=== PATIENT | female | born 1980 | race Caucasian/White ===

== ENCOUNTER 2021-03-20 14:22 | Inpatient (IN) ==
[2021-03-20] MEDS ORDERED: ALBUTEROL SULFATE 200 PUFF INHALER INH PRN (14:45)
--- NOTE | 2021-03-20 14:45 | Emergency Department Note ---
HPI General Chief complaint: Shortness of Breath/Dyspnea Stated complaint: Shortness of Breath; COVID Positive Time Seen by Provider: 03/20/21 14:26 Source: patient Mode of arrival: wheelchair Limitations: no limitations History of Present Illness HPI Narrative: Cat is a 40-year-old female who comes to the emergency department with complaints of worsening dyspnea after recently being hospitalized for COVID-19. She was diagnosed with a SARS-CoV-2 infection 7 days ago and was recently discharged from the ER on the on 2 L of oxygen by nasal cannula at home. She is unaware if she was put on prednisone. She is not reporting any increased use of oxygen requirement but also states that she does not know how to adjust her O2 at home. She has a persistent cough in the room that appears to be nonproductive but she is reported to me that she has sputum changes. She also reports that she was a heavy smoker by way of vaping prior to her diagnosis and has continued to vape several times after she came home from the hospital. The patient is a diabetic but does not have any history of acute coronary syndrome or pulmonary embolism. She states that she does have asthma but has no access to an inhaler. She is not complaining of any chest pain but is complaining of dyspnea on exertion. She has no other complaints today in the ER and no other modifying factors factors. Related Data Home Medications Medication Instructions Recorded Confirmed Formula Tablet 06/17/19 hydrocodone-acetaminophen 1 tab PO Q8HP PRN 06/17/19 06/17/19 insulin glargine 70 unit SQ 06/17/19 meloxicam 15 mg PO 06/17/19 06/17/19 metformin 1,000 mg PO BID 06/17/19 06/17/19 omeprazole 20 mg DAILY 06/17/19 06/17/19 pregabalin 300 mg PO TID 06/17/19 06/17/19 glipizide mg PO 02/27/21 liraglutide [Victoza 2-Jamal] mg SUBCUT 02/27/21 Allergies Allergy/AdvReac Type Severity Reaction Status Date / Time No Known Drug Allergies Allergy Verified 02/27/21 23:07 Review of Systems ROS ROS Narrative: Narrative: All systems ED: reviewed and negative except as stated. [facility] Narrative Patient History Narrative: Narrative: Medical/Surgical/Family History All Active Problems (Updated 03/20/21 @ 16:33 by Priyank Hunt PA-C) Acute bronchitis due to 2019 novel coronavirus (Acute) Hypoxia (Acute) Hyperglycemia (Acute) COVID-19 (Acute) Candidiasis of skin (Acute) Superficial wound (Acute) Viral upper respiratory illness (Acute) Chest pain (Acute) Medical History (Updated 03/20/21 @ 16:33 by Priyank Hunt PA-C) COVID-19 Social History Smoking Status: Current every day smoker Exam Narrative Narrative: Narrative: General Limitations: no limitations General appearance: Present alert and nontoxic Head Head: Present atraumatic, normocephalic and normal inspection Eye Eye: Present normal appearance, PERRL and EOMI ENT ENT: Present normal exam, normal oropharynx, mucous membranes moist and TM's normal bilaterally Neck Neck: Present normal inspection, full ROM and trachea midline Chest Chest: Present normal inspection and symmetric chest wall rise Respiratory Respiratory: Present wheezes Cardiovascular Cardiovascular: Present regular rate and normal rhythm Adbominal Abdominal: Present soft Extremities Extremities: Present normal inspection, full ROM and normal capillary refill Back Back: Present normal inspection and full ROM Neurological Neurological: Present alert and oriented X3 Psychiatric Psychiatric: Present normal affect and normal mood Skin Skin: Present warm (WNL), dry and normal color Course Course Course Narrative: 1443: Patient will receive an albuterol breathing treatment by way of inhaler as she has recently been diagnosed with COVID-19. Chest x-ray has been ordered for further evaluation of possible secondary infection. Lungs are without crackles or rails the patient does have mild expiratory wheezing which could be due to her history of smoking. Patient is also diabetic and is morbidly obese with a BMI of almost 80 which I suspect is causing complications and a slower recovery from her SARS-CoV-2 infection. Patient in the room has an oxygen saturation of 92% while not speaking but then desaturates into the 80s while talking and coughing. 1521: Patient's chest x-ray was interpreted by myself and there does appear to be multifocal infiltrates bilaterally which is a significant changed from her chest x-ray 3 days ago. Patient appears to be suffering hypoxia due to Covid pneumonia so we will discuss inpatient stay with the hospitalist. Patient will receive 6 mg of IV dexamethasone for inflammation. Currently her oxygen requirement has been titrated to 3 L by nasal cannula in order to maintain a saturation in the low 90s. 1554: The patient's metabolic profile has been reviewed and the patient has significant increase in her blood sugar at 460 as well as an anion gap of 20. She also appears to be suffering from hyponatremia with a sodium of 128. The patient has reported to me on reevaluation that she has not had any which is concerning for possible early DKA complicated by her already existing Covid pneumonia. Currently the nursing staff is still trying to establish IV placement. Patient's potassium levels are within normal range so we will discuss with Dr. Ivey about a bolus of 10 units of insulin to help with hyperglycemia and possible fluid however given that the patient has a sodium of 128, IV fluid may not be necessary at this time. Arterial blood gas and beta hydroxybutyrate have been ordered for further evaluation of the patient's diabetic status. 1612: I spoke with Dr. Stubbs regarding this patient and he is going to see her on the floor. 10 units insulin has been ordered for hyperglycemia. The patient's corrected sodium level is calculated at 136 given that she has a glucose of 438 so 1 L of normal saline has been ordered for hyperglycemia. Vital Signs Vital signs: Vital Signs Temperature 98.1 F 03/20/21 14:23 Pulse Rate 81 03/20/21 14:23 Respiratory Rate 22 03/20/21 14:23 Pulse Oximetry (%) 92 03/20/21 14:23 Temperature 98.1 F 03/20/21 14:23 Pulse Rate 94 H 03/20/21 15:31 Respiratory Rate 22 03/20/21 14:51 Blood Pressure 123/86 03/20/21 15:31 Pulse Oximetry (%) 90 03/20/21 15:31 [facility] Narrative Medical decision making narrative: 40-year-old female returns to the emergency department after being diagnosed with SARS-CoV-2 infection due to hypoxia and dyspnea on exertion. Patient's repeat chest x-ray shows evidence of Covid pneumonia and she is requiring higher oxygen requirement of 3 L by nasal cannula change from 2 L at home. Patient also reports history of noncompliance with diabetic medications as she has not had her insulin in over a week. Patient does have hyperglycemia with a blood sugar of 438. She was given an albuterol inhaler treatment for her shortness of breath as well as dexamethasone for inflammation due to her Covid pneumonia. Patient also received 10 units of regular insulin and IV fluid for hyperglycemia. Patient was discussed with attending emergency room physician as well as hospitalist and a decision was in due to hypoxia from Covid pneumonia as well as uncontrolled diabetes. Assessment: Covid pneumonia. Hyperglycemia. Treatment: Patient given albuterol for shortness of breath, dexamethasone for inflammation, insulin and IV fluid for elevated blood sugar. Lab Data Result diagrams: 03/20/21 14:51 03/20/21 14:51 Labs: Lab Results 03/20/21 03/20/21 03/20/21 Range/Units 14:51 14:51 14:51 WBC 6.3 (4.5-11.0) K/mcL RBC 4.26 (4.00-5.20) M/mcL Hgb 12.8 (12.0-15.0) g/dL Hct 38.8 (36.0-48.0) % MCV 91.1 (80.0-100.0) fL MCH 30.0 (26.0-34.0) pg MCHC 33.0 (31.0-36.0) g/dL RDW 15.6 H (11.5-14.5) % Plt Count 222 (140-440) K/mcL MPV 10.2 (7.4-10.4) fL Neut % (Auto) 69.2 (38.0-78.0) % Lymph % (Auto) 24.0 (15.0-49.0) % [place] % (Auto) 6.6 (1.0-12.0) % Eos % (Auto) 0 (0.0-7.0) % Baso % (Auto) 0.2 (0.0-2.0) % Lymph # (Auto) 1.50 (1.50-4.80) K/mcL [place] # (Auto) 0.41 (0.10-0.90) K/mcL Eos # (Auto) 0 (0.00-0.70) K/mcL Baso # (Auto) 0.01 (0.00-0.20) K/mcL Absolute Neutrophils 4.33 (1.80-8.00) K/mcL Sodium 128 L (133-145) mmol/L Potassium 3.6 (3.3-5.1) mmol/L Chloride 89 L (96-108) mmol/L Carbon Dioxide 19 L (22-30) mmol/L Anion Gap 20.0 H (8.0-16.0) BUN 7 (6-20) mg/dL Creatinine 1.0 (0.6-1.1) mg/dL GFR Calculation 70 Glucose 438 H (70-105) mg/dL Calcium 8.4 L (8.6-10.4) mg/dL Total Bilirubin 0.4 (0.1-1.0) mg/dL AST 56 H (<32) U/L ALT 30 (<40) U/L Alkaline Phosphatase 54 (39-117) U/L Total Protein 7.2 (5.9-8.4) gm/dL Albumin 3.5 (3.2-5.2) gm/dL Globulin 3.7 (2.2-3.7) gm/dL Albumin/Globulin Ratio 0.9 L (1.0-2.3) Beta-Hydroxybutyrate 0.78 H (<0.27) mmol/L Discharge Plan Patient/Caregiver Discharge Instructions Pt seen by [employer]/PA only: Yes (Patient discussed with Dr. Ivey.) Clinical Impression: Hypoxia, COVID-19, Hyperglycemia Activity: increase activity as tolerated Patient Disposition: Xfer As Inpt ([facility]) Condition: Good Follow up with: Elisabeth Moore PAJeanneC [Primary Care Provider] - Prescriptions: No Action hydrocodone-acetaminophen 1 TAB tablet 1 tab PO Q8HP PRN (Reason: Pain) RF: 0 meloxicam 15 MG tablet 15 mg PO RF: 0 omeprazole 20 MG capsule 20 mg DAILY RF: 0 pregabalin 300 MG capsule 300 mg PO TID RF: 0 Formula Tablet RF: 0 insulin glargine 1 UNIT/0.01 ML unit 70 unit SQ RF: 0 metformin 500 MG tablet extended release 24 hr 1,000 mg PO BID RF: 0 glipizide 10 mg tablet PO RF: 0 Victoza 2-Jamal 0.6 mg/0.1 mL (18 mg/3 mL) pen injector SUBCUT RF: 0
[2021-03-20 15:16] LABS: Basophils # (Auto) 0.01 K/mcL (0.00-0.20); Basophils % (Auto) 0.2 % (0.0-2.0); Eosinophils # (Auto) 0 K/mcL (0.00-0.70); Eosinophils % (Auto) 0 % (0.0-7.0); Hematocrit 38.8 % (36.0-48.0); Hemoglobin 12.8 g/dL (12.0-15.0); Mean Cell Volume 91.1 fL (80.0-100.0); Mean Platelet Volume 10.2 fL (7.4-10.4); Monocytes # (Auto) 0.41 K/mcL (0.10-0.90); Monocytes % (Auto) 6.6 % (1.0-12.0); Neutrophils % (Auto) 69.2 % (38.0-78.0); Platelet Count 222 K/mcL (140-440); RBC 4.26 M/mcL (4.00-5.20); Red Cell Distribution Width 15.6 % (11.5-14.5); WBC 6.3 K/mcL (4.5-11.0)
[2021-03-20] MEDS ORDERED: DEXAMETHASONE 10 MG/ML VIAL IV ONE (15:21)
[2021-03-20 15:42] LABS: ALT/SGPT 30 U/L (<40); AST/SGOT 56 U/L (<32); Albumin 3.5 gm/dL (3.2-5.2); Albumin/Globulin Ratio 0.9 (1.0-2.3); Alkaline Phosphatase 54 U/L (39-117); Bilirubin,Total 0.4 mg/dL (0.1-1.0); Blood Urea Nitrogen 7 mg/dL (6-20); Calcium 8.4 mg/dL (8.6-10.4); Carbon Dioxide 19 mmol/L (22-30); Chloride 89 mmol/L (96-108); Globulin 3.7 gm/dL (2.2-3.7); Glomerular Filtration Rate 70; Glucose 438 mg/dL (70-105)
--- NOTE | 2021-03-20 15:45 | XRay Report ---
CLINICAL INFORMATION: Report of worsening dypsnea, COVID + COMPARISON: 03/17/2021 FINDINGS: Heart size, mediastinum and pulmonary vessels are normal. Moderate patchy infiltrates in both mid and lower lungs have progressed considerably since previous exam. No effusions. IMPRESSION: Moderate patchy infiltrates throughout both mid and lower lungs have worsened considerably since previous exam. Findings compatible with Covid pneumonia Interpreted and Authenticated by: Charly Min 03/20/21
[2021-03-20] MEDS ORDERED: INSULIN REGULAR, HUMAN 1 UNIT/0.01 ML UNIT IV ONE (16:11)
[2021-03-20] MEDS ORDERED: 0.9 % SODIUM CHLORIDE 1,000 ML IV ONE (16:14)
[2021-03-20 16:18] LABS: Beta Hydroxybutyrate 0.78 mmol/L (<0.27)
--- NOTE | 2021-03-20 16:29 | Internal Med History&Physical ---
HPI History of Present Illness Patient information: Note initiated : 03/20/21 at 4:22 pm Service Date, if different from initiated Date: [] Patient: Cat Bauer 40 y/o F admitted on for Shortness of Breath; COVID Positive. Chief Complaint: [] History of present illness: Ms. Bauer is a 40 year old F The ED with worsening cough shortness of breath and weakness. Patient presented to the ED on the initially for shortness of breath and weakness body aches and was diagnosed with Covid pneumonia. Patient's oxygenation was okay and patient was discharged from the ED. However patient states that her coughing is worse with productive of white sputum her shortness of breath is worse and she is much more weak. She is requiring higher oxygen supplementation. Patient's blood glucose was 430. She says she has not taken her insulin since she came to the ED last because she has been feeling ill and not eating as much. She has not been checking her blood glucose either. She also vapes throughout the day every day. Review of Systems: Pertinent positives plus headache and nausea but no vomiting. Denies vomiting/chest or abdominal pain/diarrhea. Remaining 10 point review of system reviewed negative PFSH PFSH All Active Problems (Updated 03/20/21 @ 16:33 by Priyank Hunt PA-C) Acute bronchitis due to 2019 novel coronavirus (Acute) Hypoxia (Acute) Hyperglycemia (Acute) COVID-19 (Acute) Candidiasis of skin (Acute) Superficial wound (Acute) Viral upper respiratory illness (Acute) Chest pain (Acute) Medical History (Updated 03/20/21 @ 16:33 by Priyank Hunt PA-C) COVID-19 MEDS/ALLERGIES Home Medications and Allergies Home Medications Medication Instructions Recorded Confirmed Type Formula Tablet 06/17/19 History hydrocodone-acetaminophen 1 tab PO Q8HP PRN 06/17/19 06/17/19 History insulin glargine 70 unit SQ 06/17/19 History meloxicam 15 mg PO 06/17/19 06/17/19 History metformin 1,000 mg PO BID 06/17/19 06/17/19 History omeprazole 20 mg DAILY 06/17/19 06/17/19 History pregabalin 300 mg PO TID 06/17/19 06/17/19 History glipizide mg PO 02/27/21 History liraglutide [Victoza 2-Jamal] mg SUBCUT 02/27/21 History Allergies Allergy/AdvReac Type Severity Reaction Status Date / Time No Known Drug Allergies Allergy Verified 02/27/21 23:07 EXAM Constitutional Vitals: Temp Pulse Resp BP Pulse Ox 98.1 F 94 H 22 123/86 90 03/20/21 14:23 03/20/21 15:31 03/20/21 14:51 03/20/21 15:31 03/20/21 15:31 Exam: General: Alert, Awake, No acute Distress, obese Eyes/N/T: EOMI, PERRL, dry MM Head/Neck: neck supple, normocephalic atraumatic CV: RRR, No murmurs, normal s1/s2 Pulm: Rhonchi/wheezing b/l Abd: soft, nontender, +BS x4 Ext: no clubbing/cyanosis, b/l LE lymphedema Neuro: Alert, no focal deficits, moves all extremities, CN 2-12 grossly intact, symmetrical strength b/l upper/lower, sensations intact b/l upper/lower Skin: warm/dry DATA Data Completed and Pending Labs: Labs from last 24 hours 03/20/21 03/20/21 03/20/21 14:51 14:51 14:51 WBC RBC Hgb Hct MCV MCH MCHC RDW Plt Count MPV Neut % (Auto) Lymph % (Auto) [place] % (Auto) Eos % (Auto) Baso % (Auto) Lymph # (Auto) [place] # (Auto) Eos # (Auto) Baso # (Auto) Absolute Neutrophils PT INR D-Dimer Sodium Potassium Chloride Carbon Dioxide Anion Gap BUN Creatinine GFR Calculation Glucose Insulin Level Pending Calcium Ferritin Pending Total Bilirubin AST ALT Alkaline Phosphatase Total Creatine Kinase Pending C-Reactive Protein Pending Total Protein Albumin Globulin Albumin/Globulin Ratio Beta-Hydroxybutyrate Procalcitonin Pending 03/20/21 03/20/21 03/20/21 14:51 14:51 14:51 WBC RBC Hgb Hct MCV MCH MCHC RDW Plt Count MPV Neut % (Auto) Lymph % (Auto) [place] % (Auto) Eos % (Auto) Baso % (Auto) Lymph # (Auto) [place] # (Auto) Eos # (Auto) Baso # (Auto) Absolute Neutrophils PT Pending INR Pending D-Dimer Pending Sodium 128 L Potassium 3.6 Chloride 89 L Carbon Dioxide 19 L Anion Gap 20.0 H BUN 7 Creatinine 1.0 GFR Calculation 70 Glucose 438 H Insulin Level Calcium 8.4 L Ferritin Total Bilirubin 0.4 AST 56 H ALT 30 Alkaline Phosphatase 54 Total Creatine Kinase C-Reactive Protein Total Protein 7.2 Albumin 3.5 Globulin 3.7 Albumin/Globulin Ratio 0.9 L Beta-Hydroxybutyrate 0.78 H Procalcitonin 03/20/21 14:51 WBC 6.3 RBC 4.26 Hgb 12.8 Hct 38.8 MCV 91.1 MCH 30.0 MCHC 33.0 RDW 15.6 H Plt Count 222 MPV 10.2 Neut % (Auto) 69.2 Lymph % (Auto) 24.0 [place] % (Auto) 6.6 Eos % (Auto) 0 Baso % (Auto) 0.2 Lymph # (Auto) 1.50 [place] # (Auto) 0.41 Eos # (Auto) 0 Baso # (Auto) 0.01 Absolute Neutrophils 4.33 PT INR D-Dimer Sodium Potassium Chloride Carbon Dioxide Anion Gap BUN Creatinine GFR Calculation Glucose Insulin Level Calcium Ferritin Total Bilirubin AST ALT Alkaline Phosphatase Total Creatine Kinase C-Reactive Protein Total Protein Albumin Globulin Albumin/Globulin Ratio Beta-Hydroxybutyrate Procalcitonin A/P Narrative A/P Narrative: A: *Covid PNA: *Acute hypoxic respite failure: 2/2 above *Hyponatremia, mild, corrected 133: *Hyperglycemia: 2/2 medication noncompliance *DM w/neuropathy: A1c *Morbid obesity: *Asthma: *Vape user: *GERD: * P: -Remdes/Dexa -O2 supp, wean as able -IS/Acapella, prn nebs -Prone daily -basal and SSI -f/u inflammatory markers -abg -pct/rvp -pt/ot -ppx: lovenox bid/home PPI Time Spent With Patient Time: Total time spent is greater than 50% in coordination of care (as documented) at patient's floor/unit and/or counseling patient:
[2021-03-20 16:55] LABS: Prothrombin Time 14.1 sec (11.9-14.5)
[2021-03-20 16:56] LABS: Creatine Kinase 598 U/L (24-170)
[2021-03-20] MEDS ORDERED: REMDESIVIR 200 MG in 0.9 % SODIUM CHLORIDE 250 ML IV ONE (17:00)
[2021-03-20 17:08] LABS: Ferritin 290.4 ng/mL (13.0-150.0)
[2021-03-20] MEDS ORDERED: DEXTROSE 31 GM ORAL.SUSP PO PRN (17:40)
[2021-03-20] MEDS ORDERED: SENNOSIDES 1 TABLET PO PRN (17:40)
[2021-03-20] MEDS ORDERED: MAGNESIUM SULFATE 2 GM/50 ML BAG IV PRN (17:40)
[2021-03-20] MEDS ORDERED: POTASSIUM CHLORIDE 20 MEQ TABLET PO PRN ×2 (17:40)
[2021-03-20] MEDS ORDERED: DEXTROSE 50% 50 ML VIAL IV PRN (17:40)
[2021-03-20] MEDS ORDERED: 0.9 % SODIUM CHLORIDE 1,000 ML IV SCH (17:40)
[2021-03-20] MEDS ORDERED: POLYETHYLENE GLYCOL 3350 17 GM PACKET PO PRN (17:40)
[2021-03-20] MEDS ORDERED: ONDANSETRON 4 MG/2 ML VIAL IV PRN (17:40)
[2021-03-20] MEDS ORDERED: POTASSIUM CHLORIDE 40 MEQ in DEXTROSE 5% IN WATER 500 ML IV PRN (17:40)
[2021-03-20 18:12] LABS: Appearance,Urine HAZY (Clear); Bilirubin,Urine Negative (Negative); Color,Urine YELLOW; Culture Indicated,Urine yes; Glucose,Urine (UA) >=500 mg/dL (Negative); Ketones,Urine 20 mg/dL (Negative); Leukocyte Esterase,Urine 25 /ug (Negative); Nitrate,Urine Negative (Negative); Protein,Urine 100 mg/dL (Negative); Specific Gravity,Urine 1.022 (1.000-1.035); Urine Blood >=1.0 mg/dL (Negative); Urine RBC 159 /hpf (0-3); Urine Squamous Epithelial Cell 1 /hpf (0-4); Urine WBC 22 /hpf (0-4); Urobilinogen,Urine Negative
[2021-03-20 18:23] LABS: Hemoglobin A1C 11.1 % Hgb (4.0-6.0)
[2021-03-20] MEDS ORDERED: ACETAMINOPHEN 325 MG TABLET PO ONE (18:56)
[2021-03-20] MEDS: ACETAMINOPHEN 325 MG TABLET PO PRN (18:57)
[2021-03-20] MEDS ORDERED: cefTRIAXone 2 GM VIAL ONE (19:45)
[2021-03-20] MEDS ORDERED: traZODone HCL 50 MG TABLET PO PRN (19:52)
[2021-03-20] MEDS: cefTRIAXone 2 GM in DEXTROSE 5% IN WATER 50 ML IV SCH (20:08)
[2021-03-20] MEDS: HYDROcodone/APAP 5/325MG TABLET PO PRN (20:11)
[2021-03-20] MEDS: INSULIN LISPRO 1 UNIT/0.01 ML UNIT SQ SCH (20:24)
[2021-03-20] MEDS: 0.9 % SODIUM CHLORIDE 10 ML SYRINGE IV SCH (20:35)
[2021-03-20] MEDS: AZITHROMYCIN 500 MG in DEXTROSE 5% IN WATER 250 ML IV SCH (20:40)
[2021-03-20] MEDS: INSULIN GLARGINE, HUMAN 1 UNIT/0.01 ML SQ SCH (21:29)
[2021-03-20] MEDS: ENOXAPARIN 60 MG/0.6 ML SYRINGE SQ SCH (21:29)
[2021-03-20] MEDS: PREGABALIN 100 MG CAPSULE PO SCH (21:30)
[2021-03-20] MEDS: ALBUTEROL SULFATE 200 PUFF INHALER INH SCH (21:30)
[2021-03-20] MEDS: DOCUSATE SODIUM 100 MG CAPSULE PO SCH (21:30)
[2021-03-21] MEDS: INSULIN LISPRO 1 UNIT/0.01 ML UNIT SQ SCH ×7 (00:18→20:49)
[2021-03-21] MEDS: HYDROcodone/APAP 5/325MG TABLET PO PRN ×2 (04:06→23:50)
[2021-03-21] MEDS: 0.9 % SODIUM CHLORIDE 10 ML SYRINGE IV SCH ×3 (04:42→20:51)
[2021-03-21 06:36] LABS: Basophils # (Auto) 0.01 K/mcL (0.00-0.20); Basophils % (Auto) 0.3 % (0.0-2.0); Eosinophils # (Auto) 0 K/mcL (0.00-0.70); Eosinophils % (Auto) 0 % (0.0-7.0); Hematocrit 36.4 % (36.0-48.0); Hemoglobin 11.6 g/dL (12.0-15.0); Lymphocytes # (Auto) 0.76 K/mcL (1.50-4.80); Lymphocytes % (Auto) 20.2 % (15.0-49.0); Mean Cell Volume 90.8 fL (80.0-100.0); Mean Corpuscular HGB Conc 31.9 g/dL (31.0-36.0); Mean Platelet Volume 10.2 fL (7.4-10.4); Monocytes # (Auto) 0.18 K/mcL (0.10-0.90); Monocytes % (Auto) 4.8 % (1.0-12.0); Neutrophils % (Auto) 74.7 % (38.0-78.0); Platelet Count 188 K/mcL (140-440); RBC 4.01 M/mcL (4.00-5.20); Red Cell Distribution Width 15.6 % (11.5-14.5); WBC 3.8 K/mcL (4.5-11.0)
[2021-03-21 07:03] LABS: C-Reactive Protein 16.3 mg/dL (0.03-0.80)
[2021-03-21 07:06] LABS: ALT/SGPT 27 U/L (<40); AST/SGOT 51 U/L (<32); Albumin 3.1 gm/dL (3.2-5.2); Albumin/Globulin Ratio 0.9 (1.0-2.3); Alkaline Phosphatase 51 U/L (39-117); Bilirubin,Direct < 0.2 mg/dL (0-0.3); Bilirubin,Total 0.2 mg/dL (0.1-1.0); Blood Urea Nitrogen 8 mg/dL (6-20); Calcium 8.1 mg/dL (8.6-10.4); Carbon Dioxide 24 mmol/L (22-30); Chloride 96 mmol/L (96-108); Globulin 3.4 gm/dL (2.2-3.7); Glomerular Filtration Rate 113; Glucose 344 mg/dL (70-105); Lactate Dehydrogenase 625 U/L (135-225); Phosphorous 2.4 mg/dL (2.5-4.5); Triglycerides 101 mg/dL (<150); Uric Acid 3.6 mg/dL (2.5-8.0)
[2021-03-21] MEDS: PANTOPRAZOLE 40 MG PACKET PO SCH (07:08)
[2021-03-21 07:19] LABS: Ferritin 279.6 ng/mL (13.0-150.0)
--- NOTE | 2021-03-21 08:30 | Internal Med Progress Note ---
SUBJECTIVE Subjective Patient information: Note initiated : 03/21/21 at 8:23 am Service Date, if different from initiated Date: [] Patient: Cat Bauer 40 y/o F admitted on 03/20/21 for Shortness of Breath; COVID Positive. Chief Complaint: [] Interval history: History of present illness: Ms. Bauer is a 40 year old F The ED with worsening cough shortness of breath and weakness. Patient presented to the ED on the for shortness of breath and weakness body aches and was diagnosed with Covid pneumonia. Patient's oxygenation was okay and patient was discharged from the ED. However patient states that her coughing is worse with productive of white sputum her shortness of breath is worse and she is much more weak. She is requiring higher oxygen supplementation. Patient's blood glucose was 430. She says she has not taken her insulin since she came to the ED last because she has been feeling ill and not eating as much. She has not been checking her blood glucose either. She also vapes throughout the day every day. 03/21 Feeling a little better, although shortness of breath about the same. Dry cough. Low-grade chest discomfort when she coughs but otherwise no new complaints. On 5 L oxygen mask. Instructed her on proning today. Review of Systems: denies headache/fever/chills/nausea/vomiting/chest or abdominal pain/diarrhea. Otherwise see above. Constitutional Vitals: Vital Signs Temp Pulse Resp BP Pulse Ox 98 F 75 20 117/80 91 03/21/21 06:40 03/21/21 06:40 03/21/21 06:40 03/21/21 06:40 03/21/21 06:40 Period Temp Pulse Resp BP Sys/Lopez Pulse Ox Last 24 Hr 97.9 F-101.5 F 75-110 20-24 104-185/62-114 4-94 Intake and Output 03/20/21 03/21/21 03/21/21 21:59 05:59 13:59 Intake Total 2857 376 3441 Output Total 700 750 Balance 1250 200 250 Weight 189.919 kg Intake & Output: Intake & Output 03/20/21 03/21/21 03/21/21 21:59 05:59 13:59 Intake Total 7989 131 1933 Output Total 700 750 Balance 1250 200 250 Weight 189.919 kg Intake: IV 8731 210 7213 Sodium Chloride 0.9% 1,000 ml @ 1000 1000 100 mls/hr IV .Q10H [facility] Rx#: [id number] Zithromax 500 mg In Dextrose 5% 250 in Water 250 ml @ 250 mls/hr IV DAILY@1000 [facility] Rx#:[id number] Veklury 200 mg In Sodium 250 Chloride 0.9% 250 ml @ 500 mls/ hr IV ONCE ONE Rx#:[id number] Rocephin 2 gm In Dextrose 5% in 50 Water 50 ml @ 100 mls/hr IV DAILY [facility] Rx#:[id number] Oral 600 Output: Void Amount 750 Urine/Stool Mix 700 Other: Meal Jello Percent of Meal Consumed 100% Feeding Ability Independent Urine Appearance Clear Urine Color Dark Yellow Blood Tinged Stool Color Green Stool Consistency Soft Loose # Voids 1 Exam: General: Alert, Awake, No acute Distress, obese Eyes/N/T: EOMI, Head/Neck: neck supple, CV: RRR, No murmurs, Pulm: Rhonchi/wheezing b/l Abd: soft, nontender, +BS x4 Ext: no clubbing/cyanosis, b/l LE lymphedema Neuro: Alert, no focal deficits, moves all extremities, Skin: warm/dry OBJ DATA Labs CBC & Chem 7: 03/21/21 05:23 03/21/21 05:23 Labs: Abnormal Lab Results 03/21/21 03/21/21 03/21/21 05:23 05:23 05:23 WBC Hgb RDW Lymph # (Auto) D-Dimer 1.62 H Sodium Chloride Carbon Dioxide Anion Gap Glucose Hemoglobin A1c Calcium Phosphorus Ferritin 279.6 H AST Lactate Dehydrogenase Total Creatine Kinase C-Reactive Protein Albumin Albumin/Globulin Ratio Beta-Hydroxybutyrate Procalcitonin 0.57 H Urine Appearance Urine Protein Urine Glucose (UA) Urine Ketones Urine Occult Blood Ur Leukocyte Esterase Urine RBC Urine WBC 03/21/21 03/21/21 03/21/21 05:23 05:23 05:23 WBC 3.8 L Hgb 11.6 L RDW 15.6 H Lymph # (Auto) 0.76 L D-Dimer Sodium Chloride Carbon Dioxide Anion Gap Glucose 344 H Hemoglobin A1c Calcium 8.1 L Phosphorus 2.4 L Ferritin AST 51 H Lactate Dehydrogenase 625 H Total Creatine Kinase 431 H C-Reactive Protein 16.30 H Albumin 3.1 L Albumin/Globulin Ratio 0.9 L Beta-Hydroxybutyrate Procalcitonin Urine Appearance Urine Protein Urine Glucose (UA) Urine Ketones Urine Occult Blood Ur Leukocyte Esterase Urine RBC Urine WBC 03/20/21 03/20/21 03/20/21 17:35 14:51 14:51 WBC Hgb RDW Lymph # (Auto) D-Dimer Sodium Chloride Carbon Dioxide Anion Gap Glucose Hemoglobin A1c 11.1 H Calcium Phosphorus Ferritin AST Lactate Dehydrogenase Total Creatine Kinase C-Reactive Protein Albumin Albumin/Globulin Ratio Beta-Hydroxybutyrate Procalcitonin 0.53 H Urine Appearance Hazy A Urine Protein 100 A Urine Glucose (UA) >=500 A Urine Ketones 20 A Urine Occult Blood >=1.0 A Ur Leukocyte Esterase 25 A Urine RBC 159 H Urine WBC 22 H 03/20/21 03/20/21 03/20/21 14:51 14:51 14:51 WBC Hgb RDW Lymph # (Auto) D-Dimer 1.93 H Sodium Chloride Carbon Dioxide Anion Gap Glucose Hemoglobin A1c Calcium Phosphorus Ferritin 290.4 H AST Lactate Dehydrogenase Total Creatine Kinase 598 H C-Reactive Protein 15.10 H Albumin Albumin/Globulin Ratio Beta-Hydroxybutyrate 0.78 H Procalcitonin Urine Appearance Urine Protein Urine Glucose (UA) Urine Ketones Urine Occult Blood Ur Leukocyte Esterase Urine RBC Urine WBC 03/20/21 03/20/21 14:51 14:51 WBC Hgb RDW 15.6 H Lymph # (Auto) D-Dimer Sodium 128 L Chloride 89 L Carbon Dioxide 19 L Anion Gap 20.0 H Glucose 438 H Hemoglobin A1c Calcium 8.4 L Phosphorus Ferritin AST 56 H Lactate Dehydrogenase Total Creatine Kinase C-Reactive Protein Albumin Albumin/Globulin Ratio 0.9 L Beta-Hydroxybutyrate Procalcitonin Urine Appearance Urine Protein Urine Glucose (UA) Urine Ketones Urine Occult Blood Ur Leukocyte Esterase Urine RBC Urine WBC Meds: Medications Acetaminophen (Acetaminophen 325 Mg Tablet) 650 mg PO Q6HP PRN PRN Reason: PAIN/FEVER > 101 Last Admin: 03/20/21 18:57 Dose: 650 mg Documented by: Hydrocodone Bitart/Acetaminophen (Hydrocodone/Apap 5/325mg Tablet) 1 tab PO Q8HP PRN; Protocol PRN Reason: Pain Last Admin: 03/21/21 04:06 Dose: 1 tab Documented by: Albuterol Sulfate (Albuterol Sulfate 200 Puff Inhaler) 2 puff INH Q12H [facility] Last Admin: 03/20/21 21:30 Dose: Not Given Documented by: Albuterol/Ipratropium (Ipratropium/Albuterol 3 Ml Ampul.Neb) 3 ml NEB Q4HP PRN PRN Reason: Shortness Of Breath Dexamethasone (Dexamethasone 4 Mg Tablet) 6 mg PO DAILY [facility] Dextrose (Dextrose 50% 50 Ml Vial) 0 ml IV UD PRN PRN Reason: Hypoglycemia Diagnostic Test (Pha) (Accu-Chek 1 Each Strip) 1 each FS Q4 [facility] Last Admin: 03/21/21 07:04 Dose: 1 each Documented by: Docusate Sodium (Docusate Sodium 100 Mg Capsule) 100 mg PO BID [facility] Last Admin: 03/20/21 21:30 Dose: 100 mg Documented by: Enoxaparin Sodium (Enoxaparin 60 Mg/0.6 Ml Syringe) 60 mg SQ BID [facility] Last Admin: 03/20/21 21:29 Dose: 60 mg Documented by: Glucose (Dextrose 31 Gm Oral.Susp) 15 gm PO PRN PRN PRN Reason: Hypoglycemia Potassium Chloride 40 meq/ (Dextrose) 520 mls @ 130 mls/hr IV UD PRN PRN Reason: Potassium < 3 Magnesium Sulfate (Magnesium Sulfate) 2 gm in 50 mls @ 50 mls/hr IV UD PRN PRN Reason: Magnesium </= 1.6 REMDESIVIR 100 mg/ Sodium (Chloride) 250 mls @ 500 mls/hr IV DAILY@1200 [facility] Stop: 03/24/21 12:29 Ceftriaxone Sodium 2 gm/ (Dextrose) 50 mls @ 100 mls/hr IV DAILY [facility]; Protocol Last Infusion: 03/20/21 22:23 Dose: Infused Documented by: Azithromycin 500 mg/ Dextrose 250 mls @ 250 mls/hr IV DAILY@1000 [facility]; Protocol Stop: 03/22/21 10:59 Last Infusion: 03/20/21 22:23 Dose: Infused Documented by: Insulin Glargine (Insulin Glargine, Human 1 Unit/0.01 Ml) 70 unit SQ HS [facility] Last Admin: 03/20/21 21:29 Dose: 70 units Documented by: Insulin Human Lispro (Insulin Lispro 1 Unit/0.01 Ml Unit) 0 unit SQ Q4 [facility]; Protocol Last Admin: 03/21/21 07:08 Dose: 10 units Documented by: Ondansetron HCl (Ondansetron 4 Mg/2 Ml Vial) 4 mg IV Q4HP PRN PRN Reason: Nausea And Vomiting Pantoprazole Sodium (Pantoprazole 40 Mg Packet) 40 mg PO QAMAC [facility] Last Admin: 03/21/21 07:08 Dose: 40 mg Documented by: Polyethylene Glycol (Polyethylene Glycol 3350 17 Gm Packet) 17 gm PO DAILYP PRN PRN Reason: Constipation Potassium Chloride (Potassium Chloride 20 Meq Tablet) 40 meq PO UD PRN PRN Reason: Potssium is 3-3.5 Potassium Chloride (Potassium Chloride 20 Meq Tablet) 40 meq PO UD PRN PRN Reason: Potassium < 3 Pregabalin (Pregabalin 100 Mg Capsule) 200 mg PO TID [facility] Last Admin: 03/20/21 21:30 Dose: 200 mg Documented by: Senna (Sennosides 1 Tablet) 2 tab PO DAILYP PRN PRN Reason: Constipation Sodium Chloride (0.9 % Sodium Chloride 10 Ml Syringe) 10 ml IV Q8 [facility] Last Admin: 03/21/21 04:42 Dose: Not Given Documented by: Trazodone HCl (Trazodone Hcl 50 Mg Tablet) 50 mg PO HSP PRN PRN Reason: Sleep Zinc Sulfate (Zinc Sulfate 50 Mg Capsule) 50 mg PO DAILY [facility] A/P Narrative A/P Narrative: A: *Covid PNA w/suspected Bacterial coinfection: *Acute hypoxic respite failure: 2/2 above -5L oxymask *Hyponatremia, mild, corrected 133: improved *DM w/neuropathy & 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
[2021-03-21] MEDS ORDERED: BENZONATATE 100 MG CAPSULE PO PRN (08:49)
[2021-03-21] MEDS ORDERED: BENZONATATE 100 MG CAPSULE PO ONE (08:49)
[2021-03-21] MEDS ORDERED: DEXAMETHASONE 4 MG TABLET PO SCH (09:00)
[2021-03-21] MEDS ORDERED: INSULIN GLARGINE, HUMAN 1 UNIT/0.01 ML SQ SCH (09:00)
[2021-03-21] MEDS ORDERED: ZINC SULFATE 50 MG CAPSULE PO SCH (09:00)
[2021-03-21] MEDS ORDERED: BENZOCAINE/MENTHOL 1 LOZENGE PO PRN (09:09)
[2021-03-21] MEDS: PREGABALIN 100 MG CAPSULE PO SCH ×3 (11:08→20:50)
[2021-03-21] MEDS: DOCUSATE SODIUM 100 MG CAPSULE PO SCH ×2 (11:12→20:50)
[2021-03-21] MEDS: ENOXAPARIN 60 MG/0.6 ML SYRINGE SQ SCH ×2 (11:15→20:51)
[2021-03-21] MEDS: ALBUTEROL SULFATE 200 PUFF INHALER INH SCH ×2 (11:16→20:51)
[2021-03-21] MEDS: AZITHROMYCIN 500 MG in DEXTROSE 5% IN WATER 250 ML IV SCH (11:16)
[2021-03-21] MEDS ORDERED: REMDESIVIR 100 MG in 0.9 % SODIUM CHLORIDE 250 ML IV SCH (12:00)
[2021-03-21] MEDS: ACETAMINOPHEN 325 MG TABLET PO PRN (12:47)
[2021-03-21] MEDS: cefTRIAXone 2 GM in DEXTROSE 5% IN WATER 50 ML IV SCH (12:50)
[2021-03-21] MEDS: IPRATROPIUM/ALBUTEROL 3 ML AMPUL.NEB NEB PRN (15:28)
[2021-03-21] MEDS: INSULIN GLARGINE, HUMAN 1 UNIT/0.01 ML SQ SCH (20:50)
[2021-03-22] MEDS: INSULIN LISPRO 1 UNIT/0.01 ML UNIT SQ SCH ×8 (00:01→23:55)
[2021-03-22] MEDS: IPRATROPIUM/ALBUTEROL 3 ML AMPUL.NEB NEB PRN ×2 (00:08→05:47)
[2021-03-22] MEDS: HYDROcodone/APAP 5/325MG TABLET PO PRN ×4 (03:54→22:08)
[2021-03-22] MEDS: 0.9 % SODIUM CHLORIDE 10 ML SYRINGE IV SCH ×3 (04:41→21:10)
[2021-03-22] MEDS ORDERED: IOPAMIDOL 100 ML BOTTLE IV ONE ×2 (07:11→07:45)
[2021-03-22 07:44] LABS: ALT/SGPT 25 U/L (<40); AST/SGOT 38 U/L (<32); Albumin 3.1 gm/dL (3.2-5.2); Alkaline Phosphatase 52 U/L (39-117); Bilirubin,Direct < 0.2 mg/dL (0-0.3); Bilirubin,Total 0.2 mg/dL (0.1-1.0); Blood Urea Nitrogen 9 mg/dL (6-20); Calcium 8.1 mg/dL (8.6-10.4); Carbon Dioxide 24 mmol/L (22-30); Chloride 94 mmol/L (96-108); Globulin 3.1 gm/dL (2.2-3.7); Glomerular Filtration Rate 120; Glucose 354 mg/dL (70-105); Lactate Dehydrogenase 628 U/L (135-225); Phosphorous 2.2 mg/dL (2.5-4.5); Triglycerides 160 mg/dL (<150); Uric Acid 3.6 mg/dL (2.5-8.0)
[2021-03-22] MEDS ORDERED: MAGNESIUM SULFATE 2 GM/50 ML BAG IV PRN (07:45)
[2021-03-22] MEDS ORDERED: BENZONATATE 100 MG CAPSULE PO PRN (07:45)
[2021-03-22] MEDS ORDERED: POTASSIUM CHLORIDE 40 MEQ in DEXTROSE 5% IN WATER 500 ML IV PRN (07:45)
[2021-03-22] MEDS ORDERED: BENZOCAINE/MENTHOL 1 LOZENGE PO PRN (07:45)
[2021-03-22] MEDS ORDERED: ACETAMINOPHEN 325 MG TABLET PO PRN (07:45)
[2021-03-22] MEDS ORDERED: POTASSIUM CHLORIDE 20 MEQ TABLET PO PRN ×2 (07:45)
[2021-03-22] MEDS ORDERED: DEXTROSE 50% 50 ML VIAL IV PRN (07:45)
[2021-03-22] MEDS ORDERED: SENNOSIDES 1 TABLET PO PRN (07:45)
[2021-03-22] MEDS ORDERED: POLYETHYLENE GLYCOL 3350 17 GM PACKET PO PRN (07:45)
[2021-03-22] MEDS ORDERED: IPRATROPIUM/ALBUTEROL 3 ML AMPUL.NEB NEB PRN (07:45)
[2021-03-22] MEDS ORDERED: ONDANSETRON 4 MG/2 ML VIAL IV PRN (07:45)
[2021-03-22] MEDS ORDERED: DEXTROSE 31 GM ORAL.SUSP PO PRN (07:45)
--- NOTE | 2021-03-22 08:06 | Internal Med Progress Note ---
SUBJECTIVE Subjective Patient information: Note initiated : 03/22/21 at 8:04 am Service Date, if different from initiated Date: [] Patient: Cat Bauer 40 y/o F admitted on 03/20/21 for Shortness of Breath; COVID Positive. Chief Complaint: [] Interval history: History of present illness: Ms. Bauer is a 40 year old F The ED with worsening cough shortness of breath and weakness. Patient presented to the ED on the for shortness of breath and weakness body aches and was diagnosed with Covid pneumonia. Patient's oxygenation was okay and patient was discharged from the ED. However patient states that her coughing is worse with productive of white sputum her shortness of breath is worse and she is much more weak. She is requiring higher oxygen supplementation. Patient's blood glucose was 430. She says she has not taken her insulin since she came to the ED last because she has been feeling ill and not eating as much. She has not been checking her blood glucose either. She also vapes throughout the day every day. 03/21 Feeling a little better, although shortness of breath about the same. Dry cough. Low-grade chest discomfort when she coughs but otherwise no new complaints. On 5 L oxygen mask. Instructed her on proning today. 03/22 Patient had increased oxygen needs last night up to 15 L oxygen mask and this morning needed BiPAP. has cough/dyspnea. Patient unable to tolerate prone positioning she did lay on her side yesterday Review of Systems: denies headache/fever/chills/nausea/vomiting/chest or abdominal pain/diarrhea. Otherwise see above. Constitutional Vitals: Vital Signs Temp Pulse Resp BP Pulse Ox 97.7 F 99 H 20 99/66 91 03/22/21 03:55 03/22/21 03:55 03/22/21 03:55 03/22/21 03:55 03/22/21 03:55 Period Temp Pulse Resp BP Sys/Lopez Pulse Ox Last 24 Hr 97.3 F-98.7 F 74-99 18-22 99-124/66-77 91-92 Intake and Output 03/21/21 03/22/21 03/22/21 21:59 05:59 13:59 Intake Total 250 1200 Output Total 1750 Balance 250 -550 Weight 189.738 kg Intake & Output: Intake & Output 03/21/21 03/22/21 03/22/21 21:59 05:59 13:59 Intake Total 250 1200 Output Total 1750 Balance 250 -550 Weight 189.738 kg Intake: IV 250 Veklury 100 mg In Sodium 250 Chloride 0.9% 250 ml @ 500 mls/ hr IV DAILY@1200 [facility] Rx#: [id number] Oral 1200 Output: Void Amount 1750 Other: Meal salt free crackers & sugar free jelly # Voids 1 Exam: General: Alert, Awake, mild resp distress, obese Eyes/N/T: EOMI, Head/Neck: neck supple, CV: RRR, No murmurs, Pulm: distent - given size of pt, unable to hear wheezing today Abd: soft, nontender, +BS x4 Ext: no clubbing/cyanosis, b/l LE lymphedema Neuro: Alert, no focal deficits, moves all extremities, Skin: warm/dry OBJ DATA Labs CBC & Chem 7: 03/22/21 05:43 03/22/21 05:43 Labs: Abnormal Lab Results 03/22/21 03/22/21 03/21/21 05:43 05:43 05:23 WBC Hgb RDW Lymph # (Auto) D-Dimer Sodium 131 L Chloride 94 L Carbon Dioxide Anion Gap Creatinine 0.5 L Glucose 354 H Hemoglobin A1c Calcium 8.1 L Phosphorus 2.2 L Ferritin 279.6 H AST 38 H Lactate Dehydrogenase 628 H Total Creatine Kinase C-Reactive Protein Albumin 3.1 L Albumin/Globulin Ratio Triglycerides 160 H Beta-Hydroxybutyrate Procalcitonin 0.46 H Urine Appearance Urine Protein Urine Glucose (UA) Urine Ketones Urine Occult Blood Ur Leukocyte Esterase Urine RBC Urine WBC 03/21/21 03/21/21 03/21/21 05:23 05:23 05:23 WBC Hgb RDW Lymph # (Auto) D-Dimer 1.62 H Sodium Chloride Carbon Dioxide Anion Gap Creatinine Glucose Hemoglobin A1c Calcium Phosphorus Ferritin AST Lactate Dehydrogenase Total Creatine Kinase 431 H C-Reactive Protein 16.30 H Albumin Albumin/Globulin Ratio Triglycerides Beta-Hydroxybutyrate Procalcitonin 0.57 H Urine Appearance Urine Protein Urine Glucose (UA) Urine Ketones Urine Occult Blood Ur Leukocyte Esterase Urine RBC Urine WBC 03/21/21 03/21/21 03/20/21 05:23 05:23 17:35 WBC 3.8 L Hgb 11.6 L RDW 15.6 H Lymph # (Auto) 0.76 L D-Dimer Sodium Chloride Carbon Dioxide Anion Gap Creatinine Glucose 344 H Hemoglobin A1c Calcium 8.1 L Phosphorus 2.4 L Ferritin AST 51 H Lactate Dehydrogenase 625 H Total Creatine Kinase C-Reactive Protein Albumin 3.1 L Albumin/Globulin Ratio 0.9 L Triglycerides Beta-Hydroxybutyrate Procalcitonin Urine Appearance Hazy A Urine Protein 100 A Urine Glucose (UA) >=500 A Urine Ketones 20 A Urine Occult Blood >=1.0 A Ur Leukocyte Esterase 25 A Urine RBC 159 H Urine WBC 22 H 03/20/21 03/20/21 03/20/21 14:51 14:51 14:51 WBC Hgb RDW Lymph # (Auto) D-Dimer Sodium Chloride Carbon Dioxide Anion Gap Creatinine Glucose Hemoglobin A1c 11.1 H Calcium Phosphorus Ferritin 290.4 H AST Lactate Dehydrogenase Total Creatine Kinase 598 H C-Reactive Protein 15.10 H Albumin Albumin/Globulin Ratio Triglycerides Beta-Hydroxybutyrate Procalcitonin 0.53 H Urine Appearance Urine Protein Urine Glucose (UA) Urine Ketones Urine Occult Blood Ur Leukocyte Esterase Urine RBC Urine WBC 03/20/21 03/20/21 03/20/21 14:51 14:51 14:51 WBC Hgb RDW Lymph # (Auto) D-Dimer 1.93 H Sodium 128 L Chloride 89 L Carbon Dioxide 19 L Anion Gap 20.0 H Creatinine Glucose 438 H Hemoglobin A1c Calcium 8.4 L Phosphorus Ferritin AST 56 H Lactate Dehydrogenase Total Creatine Kinase C-Reactive Protein Albumin Albumin/Globulin Ratio 0.9 L Triglycerides Beta-Hydroxybutyrate 0.78 H Procalcitonin Urine Appearance Urine Protein Urine Glucose (UA) Urine Ketones Urine Occult Blood Ur Leukocyte Esterase Urine RBC Urine WBC 03/20/21 14:51 WBC Hgb RDW 15.6 H Lymph # (Auto) D-Dimer Sodium Chloride Carbon Dioxide Anion Gap Creatinine Glucose Hemoglobin A1c Calcium Phosphorus Ferritin AST Lactate Dehydrogenase Total Creatine Kinase C-Reactive Protein Albumin Albumin/Globulin Ratio Triglycerides Beta-Hydroxybutyrate Procalcitonin Urine Appearance Urine Protein Urine Glucose (UA) Urine Ketones Urine Occult Blood Ur Leukocyte Esterase Urine RBC Urine WBC Meds: Medications Acetaminophen (Acetaminophen 325 Mg Tablet) 650 mg PO Q6HP PRN PRN Reason: PAIN/FEVER > 101 Hydrocodone Bitart/Acetaminophen (Hydrocodone/Apap 5/325mg Tablet) 1 tab PO Q8HP PRN; Protocol PRN Reason: Pain Albuterol Sulfate (Albuterol Sulfate 200 Puff Inhaler) 2 puff INH Q12H [facility] Albuterol/Ipratropium (Ipratropium/Albuterol 3 Ml Ampul.Neb) 3 ml NEB Q4HP PRN PRN Reason: Shortness Of Breath Benzonatate (Benzonatate 100 Mg Capsule) 200 mg PO TIDP PRN PRN Reason: Cough Dexamethasone (Dexamethasone 4 Mg Tablet) 6 mg PO DAILY [facility] Dextrose (Dextrose 50% 50 Ml Vial) 0 ml IV UD PRN PRN Reason: Hypoglycemia Diagnostic Test (Pha) (Accu-Chek 1 Each Strip) 1 each FS Q4 [facility] Docusate Sodium (Docusate Sodium 100 Mg Capsule) 100 mg PO BID [facility] Enoxaparin Sodium (Enoxaparin 60 Mg/0.6 Ml Syringe) 60 mg SQ BID [facility] Glucose (Dextrose 31 Gm Oral.Susp) 15 gm PO PRN PRN PRN Reason: Hypoglycemia Azithromycin 500 mg/ Dextrose 250 mls @ 250 mls/hr IV DAILY@1000 [facility]; Protocol Stop: 03/22/21 10:59 Ceftriaxone Sodium 2 gm/ (Dextrose) 50 mls @ 100 mls/hr IV DAILY [facility]; Protocol Magnesium Sulfate (Magnesium Sulfate) 2 gm in 50 mls @ 50 mls/hr IV UD PRN PRN Reason: Magnesium </= 1.6 REMDESIVIR 100 mg/ Sodium (Chloride) 250 mls @ 500 mls/hr IV DAILY@1200 [facility] Stop: 03/24/21 12:29 Potassium Chloride 40 meq/ (Dextrose) 520 mls @ 130 mls/hr IV UD PRN PRN Reason: Potassium < 3 Insulin Glargine (Insulin Glargine, Human 1 Unit/0.01 Ml) 10 unit SQ DAILY [facility] Insulin Glargine (Insulin Glargine, Human 1 Unit/0.01 Ml) 70 unit SQ HS [facility] Insulin Human Lispro (Insulin Lispro 1 Unit/0.01 Ml Unit) 0 unit SQ Q4 [facility]; Protocol Ondansetron HCl (Ondansetron 4 Mg/2 Ml Vial) 4 mg IV Q4HP PRN PRN Reason: Nausea And Vomiting Pantoprazole Sodium (Pantoprazole 40 Mg Packet) 40 mg PO QAMAC [facility] Polyethylene Glycol (Polyethylene Glycol 3350 17 Gm Packet) 17 gm PO DAILYP PRN PRN Reason: Constipation Potassium Chloride (Potassium Chloride 20 Meq Tablet) 40 meq PO UD PRN PRN Reason: Potssium is 3-3.5 Potassium Chloride (Potassium Chloride 20 Meq Tablet) 40 meq PO UD PRN PRN Reason: Potassium < 3 Pregabalin (Pregabalin 100 Mg Capsule) 200 mg PO TID [facility] Senna (Sennosides 1 Tablet) 2 tab PO DAILYP PRN PRN Reason: Constipation Sodium Chloride (0.9 % Sodium Chloride 10 Ml Syringe) 10 ml IV Q8 [facility] Throat Lozenges (Benzocaine/Menthol 1 Lozenge) 1 lozenge PO PRN PRN PRN Reason: Sore Throat Trazodone HCl (Trazodone Hcl 50 Mg Tablet) 50 mg PO HSP PRN PRN Reason: Sleep Zinc Sulfate (Zinc Sulfate 50 Mg Capsule) 50 mg PO DAILY [facility] A/P Narrative A/P Narrative: A: *Covid PNA w/suspected Bacterial coinfection & ARDS: -RVP neg *Acute hypoxic respite failure: 2/2 above -worsening now requiring Bipap @ fio2 55% *Hyponatremia, mild, corrected 133: improved *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
[2021-03-22] MEDS: PANTOPRAZOLE 40 MG PACKET PO SCH (08:22)
[2021-03-22] MEDS: PREGABALIN 100 MG CAPSULE PO SCH ×3 (08:30→19:44)
[2021-03-22] MEDS: ZINC SULFATE 50 MG CAPSULE PO SCH (08:30)
[2021-03-22] MEDS: DOCUSATE SODIUM 100 MG CAPSULE PO SCH ×2 (08:31→21:07)
[2021-03-22] MEDS: DEXAMETHASONE 4 MG TABLET PO SCH (08:31)
[2021-03-22] MEDS: ENOXAPARIN 60 MG/0.6 ML SYRINGE SQ SCH ×2 (08:34→19:43)
[2021-03-22] MEDS: INSULIN GLARGINE, HUMAN 1 UNIT/0.01 ML SQ SCH (08:34)
[2021-03-22] MEDS: cefTRIAXone 2 GM in DEXTROSE 5% IN WATER 50 ML IV SCH (08:35)
[2021-03-22 09:00] LABS: Hematocrit 35.6 % (36.0-48.0); Hemoglobin 11.7 g/dL (12.0-15.0); Mean Cell Volume 91.3 fL (80.0-100.0); Mean Corpuscular HGB Conc 32.9 g/dL (31.0-36.0); Mean Platelet Volume 10.3 fL (7.4-10.4); Platelet Count 232 K/mcL (140-440); Red Cell Distribution Width 15.7 % (11.5-14.5); WBC 6.8 K/mcL (4.5-11.0)
[2021-03-22] MEDS ORDERED: INSULIN GLARGINE, HUMAN 1 UNIT/0.01 ML SQ SCH ×2 (09:00→21:00)
[2021-03-22] MEDS ORDERED: AZITHROMYCIN 500 MG in DEXTROSE 5% IN WATER 250 ML IV SCH (10:00)
[2021-03-22 10:10] LABS: Anisocytosis 1+ (None Seen); Band Neutrophils % 2 % (0-10); Lymphocytes % 7 % (15-49); Monocytes % (Manual) 4 % (1-12); Platelet Estimate NORMAL (Normal); RBC Morphology ABNORMAL (Normal); Segmented Neutrophils % 87 % (38-78)
[2021-03-22] MEDS: LORazepam 2 MG/ML VIAL IV PRN ×3 (11:11→23:08)
[2021-03-22] MEDS: ALBUTEROL SULFATE 200 PUFF INHALER INH SCH ×2 (12:45→20:53)
[2021-03-22] MEDS: REMDESIVIR 100 MG in 0.9 % SODIUM CHLORIDE 250 ML IV SCH (13:05)
--- NOTE | 2021-03-22 14:01 | Cat Scan Report ---
CLINICAL INFORMATION: Shortness of breath Covid positive. COMPARISON: None. TECHNIQUE: 80 cc of Isovue-370 were injected intravenously, and 25 seconds later, 0.625 mm helical slices were obtained from the lung apices through the bases. Following reconstruction, 2.5 mm sagittal, coronal and axial reformations were processed and reviewed at lung, mediastinal and bone windows. 7 mm axial MIPS were also obtained to optimize pulmonary nodule detection. The exam was performed using radiation dose optimization techniques including, but not limited to, automated exposure control, adjustment of the mA and/or kV according to patient size and use of iterative reconstruction technique. FINDINGS: Pulmonary parenchymal windows show large patchy groundglass infiltrates throughout both upper, right middle and lower lobes. There are no effusions. The mediastinal windows show the heart is borderline enlarged. No plaque in the coronary arteries. The thoracic aorta and pulmonary arteries are normal diameter. A few mildly enlarged lymph nodes in the lower mediastinal and both hilar regions to 12 mm. This is compatible with benign reactive adenopathy. Small hiatal hernia is noted. The thyroid is unremarkable. Bones and soft tissues of the chest wall show no abnormality. Images through the superior abdomen show moderate hepatomegaly with diffuse fatty change within the liver. Visualized spleen, adrenal glands pancreas and kidneys are normal. IMPRESSION: 1. Large patchy diffuse groundglass infiltrates throughout both lungs compatible with the clinical diagnosis of Covid pneumonia. 2. Moderate hepatomegaly with diffuse fatty change within the liver. Please correlate with LFTs. 3. Small hiatal hernia. Interpreted and Authenticated by: Charly Min 03/22/21
[2021-03-22] MEDS ORDERED: INSULIN REGULAR, HUMAN 1 UNIT/0.01 ML UNIT ONE (18:10)
[2021-03-22] MEDS: 0.9 % SODIUM CHLORIDE 250 ML IV SCH (18:21)
[2021-03-22] MEDS: INSULIN REGULAR, HUMAN 50 UNIT in 0.9 % SODIUM CHLORIDE 99.5 ML IV SCH (18:22)
[2021-03-22] MEDS ORDERED: CYCLOBENZAPRINE 10 MG TABLET PO PRN (19:14)
[2021-03-22] MEDS: OXYBUTYNIN CHLORIDE 5 MG TABLET PO SCH (19:44)
[2021-03-22] MEDS: IMIPRAMINE 10 MG TABLET PO SCH ×2 (19:45→19:46)
[2021-03-22] MEDS: IMIPRAMINE 25 MG TABLET PO SCH (19:58)
[2021-03-22] MEDS ORDERED: traZODone HCL 50 MG TABLET PO PRN (21:00)
[2021-03-22] MEDS ORDERED: IMIPRAMINE 10 MG TABLET PO SCH (21:00)
[2021-03-23] MEDS ORDERED: INSULIN REGULAR, HUMAN 1 UNIT/0.01 ML UNIT ONE (00:31)
[2021-03-23] MEDS: INSULIN REGULAR, HUMAN 50 UNIT in 0.9 % SODIUM CHLORIDE 99.5 ML IV SCH (00:36)
[2021-03-23] MEDS: INSULIN LISPRO 1 UNIT/0.01 ML UNIT SQ SCH ×4 (03:20→11:42)
[2021-03-23] MEDS: 0.9 % SODIUM CHLORIDE 250 ML IV SCH (05:32)
[2021-03-23] MEDS: 0.9 % SODIUM CHLORIDE 10 ML SYRINGE IV SCH ×2 (05:32→13:50)
[2021-03-23 06:59] LABS: Basophils # (Auto) 0.01 K/mcL (0.00-0.20); Basophils % (Auto) 0.2 % (0.0-2.0); Eosinophils # (Auto) 0 K/mcL (0.00-0.70); Eosinophils % (Auto) 0 % (0.0-7.0); Hematocrit 35.2 % (36.0-48.0); Hemoglobin 11.2 g/dL (12.0-15.0); Lymphocytes # (Auto) 0.75 K/mcL (1.50-4.80); Lymphocytes % (Auto) 11.7 % (15.0-49.0); Mean Cell Volume 92.1 fL (80.0-100.0); Mean Corpuscular HGB Conc 31.8 g/dL (31.0-36.0); Mean Platelet Volume 10.3 fL (7.4-10.4); Monocytes # (Auto) 0.29 K/mcL (0.10-0.90); Monocytes % (Auto) 4.5 % (1.0-12.0); Neutrophils % (Auto) 83.6 % (38.0-78.0); Platelet Count 289 K/mcL (140-440); RBC 3.82 M/mcL (4.00-5.20); Red Cell Distribution Width 15.8 % (11.5-14.5); WBC 6.4 K/mcL (4.5-11.0)
[2021-03-23 07:18] LABS: ALT/SGPT 21 U/L (<40); AST/SGOT 29 U/L (<32); Albumin/Globulin Ratio 1.2 (1.0-2.3); Alkaline Phosphatase 56 U/L (39-117); Bilirubin,Direct < 0.2 mg/dL (0-0.3); Bilirubin,Total 0.2 mg/dL (0.1-1.0); Blood Urea Nitrogen 8 mg/dL (6-20); Carbon Dioxide 25 mmol/L (22-30); Chloride 97 mmol/L (96-108); Globulin 2.6 gm/dL (2.2-3.7); Glomerular Filtration Rate 130; Glucose 133 mg/dL (70-105); Lactate Dehydrogenase 636 U/L (135-225); Phosphorous 2.4 mg/dL (2.5-4.5); Triglycerides 133 mg/dL (<150); Uric Acid 3.1 mg/dL (2.5-8.0)
[2021-03-23] MEDS ORDERED: PANTOPRAZOLE 40 MG PACKET PO SCH (07:30)
--- NOTE | 2021-03-23 07:34 | Internal Med Progress Note ---
SUBJECTIVE Subjective Patient information: Note initiated : 03/23/21 at 7:30 am Service Date, if different from initiated Date: [] Patient: Cat Bauer 40 y/o F admitted on 03/20/21 for Shortness of Breath; COVID Positive. Chief Complaint: [] Interval history: History of present illness: Ms. Bauer is a 40 year old F The ED with worsening cough shortness of breath and weakness. Patient presented to the ED on the initially for shortness of breath and weakness body aches and was diagnosed with Covid pneumonia. Patient's oxygenation was okay and patient was discharged from the ED. However patient states that her coughing is worse with productive of white sputum her shortness of breath is worse and she is much more weak. She is requiring higher oxygen supplementation. Patient's blood glucose was 430. She says she has not taken her insulin since she came to the ED last because she has been feeling ill and not eating as much. She has not been checking her blood glucose either. She also vapes throughout the day every day. 03/21 Feeling a little better, although shortness of breath about the same. Dry cough. Low-grade chest discomfort when she coughs but otherwise no new complaints. On 5 L oxygen mask. Instructed her on proning today. 03/22 Patient had increased oxygen needs last night up to 15 L oxygen mask and this morning needed BiPAP. has cough/dyspnea. Patient unable to tolerate prone positioning she did lay on her side yesterday 03/23 Patient with increasing oxygen needs on BiPAP this morning. Trial of Lasix give n. She may very well be intubated today. Review of Systems: denies headache/fever/chills/nausea/vomiting/chest or abdominal pain/diarrhea. Otherwise see above. Constitutional Vitals: Vital Signs Temp Pulse Resp BP Pulse Ox 98.2 F 69 30 H 100/62 90 03/23/21 01:00 03/23/21 07:08 03/23/21 07:08 03/23/21 07:00 03/23/21 07:08 Period Temp Pulse Resp BP Sys/Lopez Pulse Ox Last 24 Hr 97.3 F-98.9 F 64-88 18-32 88-126/62-85 61-96 Intake and Output 03/22/21 03/23/21 03/23/21 21:59 05:59 13:59 Intake Total 713 917 Output Total 1775 800 Balance -1062 117 Weight 189.239 kg Intake & Output: Intake & Output 03/22/21 03/23/21 03/23/21 21:59 05:59 13:59 Intake Total 713 917 Output Total 1775 800 Balance -1062 117 Weight 189.239 kg Intake: IV 33 377 Sodium Chloride 0.9% 250 ml @ 223 20 mls/hr IV .[id number] RODRIGUEZ Rx#: [id number] HumuLIN R 50 UNIT In Sodium 33 154 Chloride 0.9% 99.5 ml @ 5 UNIT/ HR 10 mls/hr IV DUR RODRIGUEZ Rx#: [id number] Oral 680 540 Output: Void Amount 1775 800 Other: Urine Appearance Clear Clear Urine Color Pale Pale Urine Odor Normal Strong Exam: General: Alert, Awake, mild resp distress, obese Eyes/N/T: EOMI, Head/Neck: neck supple, CV: RRR, No murmurs, Pulm: distent - given size of pt, unable to hear wheezing today Abd: soft, nontender, +BS x4 Ext: no clubbing/cyanosis, b/l LE lymphedema Neuro: Alert, no focal deficits, moves all extremities, Skin: warm/dry OBJ DATA Labs CBC & Chem 7: 03/23/21 05:25 03/23/21 05:25 Labs: Abnormal Lab Results 03/23/21 03/23/21 03/23/21 05:25 05:25 05:24 WBC RBC 3.82 L Hgb 11.2 L Hct 35.2 L RDW 15.8 H Neut % (Auto) 83.6 H Lymph % (Auto) 11.7 L Lymph # (Auto) 0.75 L Seg Neutrophils % Lymphocytes % RBC Morphology Anisocytosis D-Dimer Sodium Chloride Carbon Dioxide Anion Gap Creatinine 0.4 L Glucose 133 H Hemoglobin A1c Calcium 8.0 L Phosphorus 2.4 L Ferritin AST Lactate Dehydrogenase 636 H Total Creatine Kinase C-Reactive Protein 5.60 H Total Protein 5.6 L Albumin 3.0 L Albumin/Globulin Ratio Triglycerides Beta-Hydroxybutyrate Procalcitonin Urine Appearance Urine Protein Urine Glucose (UA) Urine Ketones Urine Occult Blood Ur Leukocyte Esterase Urine RBC Urine WBC 03/22/21 03/22/21 03/22/21 05:43 05:43 05:43 WBC RBC 3.90 L Hgb 11.7 L Hct 35.6 L RDW 15.7 H Neut % (Auto) Lymph % (Auto) Lymph # (Auto) Seg Neutrophils % 87 H Lymphocytes % 7 L RBC Morphology Abnormal A Anisocytosis 1+ A D-Dimer Sodium 131 L Chloride 94 L Carbon Dioxide Anion Gap Creatinine 0.5 L Glucose 354 H Hemoglobin A1c Calcium 8.1 L Phosphorus 2.2 L Ferritin AST 38 H Lactate Dehydrogenase 628 H Total Creatine Kinase C-Reactive Protein Total Protein Albumin 3.1 L Albumin/Globulin Ratio Triglycerides 160 H Beta-Hydroxybutyrate Procalcitonin 0.46 H Urine Appearance Urine Protein Urine Glucose (UA) Urine Ketones Urine Occult Blood Ur Leukocyte Esterase Urine RBC Urine WBC 03/21/21 03/21/21 03/21/21 05:23 05:23 05:23 WBC RBC Hgb Hct RDW Neut % (Auto) Lymph % (Auto) Lymph # (Auto) Seg Neutrophils % Lymphocytes % RBC Morphology Anisocytosis D-Dimer 1.62 H Sodium Chloride Carbon Dioxide Anion Gap Creatinine Glucose Hemoglobin A1c Calcium Phosphorus Ferritin 279.6 H AST Lactate Dehydrogenase Total Creatine Kinase C-Reactive Protein Total Protein Albumin Albumin/Globulin Ratio Triglycerides Beta-Hydroxybutyrate Procalcitonin 0.57 H Urine Appearance Urine Protein Urine Glucose (UA) Urine Ketones Urine Occult Blood Ur Leukocyte Esterase Urine RBC Urine WBC 03/21/21 03/21/21 03/21/21 05:23 05:23 05:23 WBC 3.8 L RBC Hgb 11.6 L Hct RDW 15.6 H Neut % (Auto) Lymph % (Auto) Lymph # (Auto) 0.76 L Seg Neutrophils % Lymphocytes % RBC Morphology Anisocytosis D-Dimer Sodium Chloride Carbon Dioxide Anion Gap Creatinine Glucose 344 H Hemoglobin A1c Calcium 8.1 L Phosphorus 2.4 L Ferritin AST 51 H Lactate Dehydrogenase 625 H Total Creatine Kinase 431 H C-Reactive Protein 16.30 H Total Protein Albumin 3.1 L Albumin/Globulin Ratio 0.9 L Triglycerides Beta-Hydroxybutyrate Procalcitonin Urine Appearance Urine Protein Urine Glucose (UA) Urine Ketones Urine Occult Blood Ur Leukocyte Esterase Urine RBC Urine WBC 03/20/21 03/20/21 03/20/21 17:35 14:51 14:51 WBC RBC Hgb Hct RDW Neut % (Auto) Lymph % (Auto) Lymph # (Auto) Seg Neutrophils % Lymphocytes % RBC Morphology Anisocytosis D-Dimer Sodium Chloride Carbon Dioxide Anion Gap Creatinine Glucose Hemoglobin A1c 11.1 H Calcium Phosphorus Ferritin AST Lactate Dehydrogenase Total Creatine Kinase C-Reactive Protein Total Protein Albumin Albumin/Globulin Ratio Triglycerides Beta-Hydroxybutyrate Procalcitonin 0.53 H Urine Appearance Hazy A Urine Protein 100 A Urine Glucose (UA) >=500 A Urine Ketones 20 A Urine Occult Blood >=1.0 A Ur Leukocyte Esterase 25 A Urine RBC 159 H Urine WBC 22 H 03/20/21 03/20/21 03/20/21 14:51 14:51 14:51 WBC RBC Hgb Hct RDW Neut % (Auto) Lymph % (Auto) Lymph # (Auto) Seg Neutrophils % Lymphocytes % RBC Morphology Anisocytosis D-Dimer 1.93 H Sodium Chloride Carbon Dioxide Anion Gap Creatinine Glucose Hemoglobin A1c Calcium Phosphorus Ferritin 290.4 H AST Lactate Dehydrogenase Total Creatine Kinase 598 H C-Reactive Protein 15.10 H Total Protein Albumin Albumin/Globulin Ratio Triglycerides Beta-Hydroxybutyrate 0.78 H Procalcitonin Urine Appearance Urine Protein Urine Glucose (UA) Urine Ketones Urine Occult Blood Ur Leukocyte Esterase Urine RBC Urine WBC 03/20/21 03/20/21 14:51 14:51 WBC RBC Hgb Hct RDW 15.6 H Neut % (Auto) Lymph % (Auto) Lymph # (Auto) Seg Neutrophils % Lymphocytes % RBC Morphology Anisocytosis D-Dimer Sodium 128 L Chloride 89 L Carbon Dioxide 19 L Anion Gap 20.0 H Creatinine Glucose 438 H Hemoglobin A1c Calcium 8.4 L Phosphorus Ferritin AST 56 H Lactate Dehydrogenase Total Creatine Kinase C-Reactive Protein Total Protein Albumin Albumin/Globulin Ratio 0.9 L Triglycerides Beta-Hydroxybutyrate Procalcitonin Urine Appearance Urine Protein Urine Glucose (UA) Urine Ketones Urine Occult Blood Ur Leukocyte Esterase Urine RBC Urine WBC Meds: Medications Acetaminophen (Acetaminophen 325 Mg Tablet) 650 mg PO Q6HP PRN PRN Reason: PAIN/FEVER > 101 Hydrocodone Bitart/Acetaminophen (Hydrocodone/Apap 5/325mg Tablet) 1 tab PO Q8HP PRN; Protocol PRN Reason: Pain Last Admin: 03/22/21 22:08 Dose: 1 tab Documented by: Albuterol Sulfate (Albuterol Sulfate 200 Puff Inhaler) 2 puff INH Q12H RODRIGUEZ Last Admin: 03/22/21 20:53 Dose: Not Given Documented by: Albuterol/Ipratropium (Ipratropium/Albuterol 3 Ml Ampul.Neb) 3 ml NEB Q4HP PRN PRN Reason: Shortness Of Breath Last Admin: 03/22/21 16:16 Dose: 3 ml Documented by: Benzonatate (Benzonatate 100 Mg Capsule) 200 mg PO TIDP PRN PRN Reason: Cough Last Admin: 03/22/21 19:44 Dose: 200 mg Documented by: Cyclobenzaprine HCl (Cyclobenzaprine 10 Mg Tablet) 5 - 10 mg PO TIDP PRN PRN Reason: Muscle Spasm Last Admin: 03/22/21 19:44 Dose: 10 mg Documented by: Dexamethasone (Dexamethasone 4 Mg Tablet) 6 mg PO DAILY [facility] Last Admin: 03/22/21 08:31 Dose: 6 mg Documented by: Dextrose (Dextrose 50% 50 Ml Vial) 0 ml IV UD PRN PRN Reason: Hypoglycemia Diagnostic Test (Pha) (Accu-Chek 1 Each Strip) 1 each FS Q4 [facility] Last Admin: 03/23/21 07:00 Dose: 1 each Documented by: Docusate Sodium (Docusate Sodium 100 Mg Capsule) 100 mg PO BID [facility] Last Admin: 03/22/21 21:07 Dose: 100 mg Documented by: Enoxaparin Sodium (Enoxaparin 60 Mg/0.6 Ml Syringe) 60 mg SQ BID [facility] Last Admin: 03/22/21 19:43 Dose: 60 mg Documented by: Glucose (Dextrose 31 Gm Oral.Susp) 15 gm PO PRN PRN PRN Reason: Hypoglycemia Ceftriaxone Sodium 2 gm/ (Dextrose) 50 mls @ 100 mls/hr IV DAILY [facility]; Protocol Last Infusion: 03/22/21 09:05 Dose: Infused Documented by: Magnesium Sulfate (Magnesium Sulfate) 2 gm in 50 mls @ 50 mls/hr IV UD PRN PRN Reason: Magnesium </= 1.6 REMDESIVIR 100 mg/ Sodium (Chloride) 250 mls @ 500 mls/hr IV DAILY@1200 RODRIGUEZ Stop: 03/24/21 12:29 Last Infusion: 03/22/21 13:47 Dose: Infused Documented by: Potassium Chloride 40 meq/ (Dextrose) 520 mls @ 130 mls/hr IV UD PRN PRN Reason: Potassium < 3 Insulin Human Regular 50 unit/ (Sodium Chloride) 100 mls @ 10 mls/hr IV DUR [facility]; Protocol Last Titration: 03/23/21 04:30 Dose: 0 unit/hr, 0 mls/hr Documented by: Sodium Chloride (Sodium Chloride 0.9%) 250 mls @ 20 mls/hr IV .[id number] [facility] Last Admin: 03/23/21 05:32 Dose: Not Given Documented by: Imipramine HCl (Imipramine 25 Mg Tablet) 12.5 mg PO BID [facility] Last Admin: 03/22/21 19:58 Dose: Not Given Documented by: Insulin Glargine (Insulin Glargine, Human 1 Unit/0.01 Ml) 70 unit SQ HS [facility] Last Admin: 03/22/21 21:06 Dose: 70 units Documented by: Insulin Glargine (Insulin Glargine, Human 1 Unit/0.01 Ml) 30 unit SQ DAILY [facility] Last Admin: 03/22/21 08:34 Dose: 30 units Documented by: Insulin Human Lispro (Insulin Lispro 1 Unit/0.01 Ml Unit) 0 unit SQ Q4 [facility]; Protocol Lorazepam (Lorazepam 2 Mg/Ml Vial) 0.5 mg IV Q6HP PRN PRN Reason: ANXIETY/SEDATION Last Admin: 03/22/21 23:08 Dose: 0.5 mg Documented by: Ondansetron HCl (Ondansetron 4 Mg/2 Ml Vial) 4 mg IV Q4HP PRN PRN Reason: Nausea And Vomiting Oxybutynin Chloride (Oxybutynin Chloride 5 Mg Tablet) 5 mg PO DAILY [facility] Last Admin: 03/22/21 19:44 Dose: 5 mg Documented by: Pantoprazole Sodium (Pantoprazole 40 Mg Packet) 40 mg PO QAMAC [facility] Lurasidone [Latuda] (20 Mg Tablet) 1 dose PO DAILY [facility] Polyethylene Glycol (Polyethylene Glycol 3350 17 Gm Packet) 17 gm PO DAILYP PRN PRN Reason: Constipation Potassium Chloride (Potassium Chloride 20 Meq Tablet) 40 meq PO UD PRN PRN Reason: Potssium is 3-3.5 Potassium Chloride (Potassium Chloride 20 Meq Tablet) 40 meq PO UD PRN PRN Reason: Potassium < 3 Pregabalin (Pregabalin 100 Mg Capsule) 200 mg PO TID [facility] Last Admin: 03/22/21 19:44 Dose: 200 mg Documented by: Senna (Sennosides 1 Tablet) 2 tab PO DAILYP PRN PRN Reason: Constipation Sodium Chloride (0.9 % Sodium Chloride 10 Ml Syringe) 10 ml IV Q8 [facility] Last Admin: 03/23/21 05:32 Dose: 10 ml Documented by: Throat Lozenges (Benzocaine/Menthol 1 Lozenge) 1 lozenge PO PRN PRN PRN Reason: Sore Throat Last Admin: 03/22/21 19:44 Dose: 1 lozenge Documented by: Trazodone HCl (Trazodone Hcl 50 Mg Tablet) 50 mg PO HSP PRN PRN Reason: Sleep Zinc Sulfate (Zinc Sulfate 50 Mg Capsule) 50 mg PO DAILY [facility] Last Admin: 03/22/21 08:30 Dose: 50 mg Documented by: A/P Narrative A/P Narrative: A: *Covid PNA w/suspected Bacterial coinfection & ARDS: -RVP neg *Acute hypoxic respite failure: 2/2 above -increased fio2 need o/n. ANASTASIA index previously 6.27, now *Hyponatremia, mild, corrected 133: improved *DM w/neuropathy & Hyperglycemia on admit: 2/2 medication noncompliance, poorly controlled: -A1c 11.1 *Morbid obesity: *Asthma: *Vape user: *GERD: *h/o anxiety/depression: P: -Remdes/Dexa -Rocephin/Azithro, pending SC -bipap, f/u ABG -lasix -IS/Acapella, prn nebs -pt does not tolerate Prone positioning, does lay on side -basal (increase, as pt on Dexa) and SSI -cont psych meds -pt/ot -abstain from vaping -ppx: lovenox bid/home PPI Time Spent With Patient Time: Total time spent is greater than 50% in coordination of care (as documented) at patient's floor/unit and/or counseling patient: [facility]AL[facility] VTE Deep Vein Thrombosis/Pulmonary Embolism Present on Admission: No
[2021-03-23] MEDS: ENOXAPARIN 60 MG/0.6 ML SYRINGE SQ SCH (07:39)
[2021-03-23] MEDS: DEXAMETHASONE 4 MG TABLET PO SCH (07:40)
[2021-03-23] MEDS: INSULIN GLARGINE, HUMAN 1 UNIT/0.01 ML SQ SCH (07:41)
[2021-03-23] MEDS: PREGABALIN 100 MG CAPSULE PO SCH (07:42)
[2021-03-23] MEDS: OXYBUTYNIN CHLORIDE 5 MG TABLET PO SCH (07:42)
[2021-03-23] MEDS: ZINC SULFATE 50 MG CAPSULE PO SCH (07:42)
[2021-03-23] MEDS: IMIPRAMINE 25 MG TABLET PO SCH (07:42)
[2021-03-23] MEDS: DOCUSATE SODIUM 100 MG CAPSULE PO SCH (07:42)
[2021-03-23] MEDS: cefTRIAXone 2 GM in DEXTROSE 5% IN WATER 50 ML IV SCH (07:42)
[2021-03-23] MEDS: ALBUTEROL SULFATE 200 PUFF INHALER INH SCH (07:43)
[2021-03-23] MEDS ORDERED: FUROSEMIDE 40 MG/4 ML VIAL IV ONE (07:49)
[2021-03-23] MEDS ORDERED: ALBUMIN HUMAN 12.5 GM/50 ML BAG IV ONE (07:49)
[2021-03-23] MEDS: LORazepam 2 MG/ML VIAL IV PRN (08:15)
[2021-03-23] MEDS ORDERED: INSULIN GLARGINE, HUMAN 1 UNIT/0.01 ML SQ ONE ×3 (08:15→08:53)
[2021-03-23] MEDS ORDERED: LURASIDONE 20 MG PO SCH (09:00)
[2021-03-23] MEDS ORDERED: LORazepam 2 MG/ML VIAL IV PRN (10:06)
[2021-03-23] MEDS: REMDESIVIR 100 MG in 0.9 % SODIUM CHLORIDE 250 ML IV SCH (11:20)
[2021-03-23] MEDS ORDERED: fentaNYL 100 MCG/2 ML VIAL IV ONE (11:59)
[2021-03-23] MEDS ORDERED: MIDAZOLAM 5 MG/5 ML VIAL IV ONE (11:59)
[2021-03-23] MEDS ORDERED: ONDANSETRON 4 MG/2 ML VIAL IV ONE (11:59)
[2021-03-23] MEDS ORDERED: ROCURONIUM 10 MG/ML ML IV ONE (11:59)
--- NOTE | 2021-03-23 12:02 | XRay Report ---
CLINICAL INFORMATION: hypoxia COMPARISON: 03/20/2021 FINDINGS: Heart size, mediastinum and pulmonary vessels remain normal. Large patchy infiltrates throughout both lungs have progressed since the x-ray three days ago. No effusions IMPRESSION: Large patchy infiltrates, throughout both lungs, progressing since the previous examination three days prior. Findings compatible with clinical diagnosis of Covid pneumonia Interpreted and Authenticated by: Charly Min 03/23/21
--- NOTE | 2021-03-23 12:49 | Procedure Note ---
PROC Intubation Time out performed: Yes Date of Procedure: 03/23/21 Sedative: Fentanyl Paralytic: Rocuronium ETT: ETCO2 Laryngoscope: 3 Assist device used: glide ET tube size: 7.5 Tube secured location: teeth Tube placement confirmation: visualized tube passing through cords # of Attempts: 1 Patient tolerated procedure: well
[2021-03-23] MEDS ORDERED: PROPOFOL 1,000 MG in PREMIX 1 BAG IV SCH (13:00)
[2021-03-23] MEDS ORDERED: fentaNYL 100 MCG/2 ML VIAL IV PRN (13:01)
--- NOTE | 2021-03-23 13:20 | XRay Report ---
CLINICAL INFORMATION: ETT placement COMPARISON: 03/23/2021 1005 hours FINDINGS: Endotracheal tip is located in the mid right mainstem bronchus. NG tube extends off the edge of film at least to the gastric body. The mediastinal silhouette and pulmonary vessels are normal. Diffuse bilateral infiltrates are unchanged from the film earlier this morning. No effusion IMPRESSION: Large diffuse bilateral infiltrates-stable Endotracheal tip in the right mainstem bronchus. The nurses were instructed to immediately withdraw the tube 5 cm. NG tube tip extends off the edge of the film to at least the gastric body Interpreted and Authenticated by: Charly Mni 03/23/21
--- NOTE | 2021-03-23 13:41 | Transfer Summary ---
Discharge Provider Provider Patient information: Note initiated : 03/23/21 at 1:34 pm Service Date, if different from initiated Date: [] Patient: Cat Bauer 40 y/o F admitted on 03/20/21 for Shortness of Breath; COVID Positive. Chief Complaint: [] Date of admission: 03/20/21 17:32 Discharge date: 03/23/21 Primary care physician: Elisabeth Moore PA-C Consults: 03/20/21 Consult to Physician [CONS] Stat Comment: Consulting Provider: Lazaro Kulkarni Reason For Exam: Physician to Consult Discharge Meds Discharge Medications Home Medications Formula Tablet 1 tab PO QDAY 06/17/19 [History Confirmed 03/20/21 Last Taken 03/20/21 10:00] insulin glargine 70 unit SQ HS 06/17/19 [History Confirmed 03/20/21 Last Taken 03/13/21 09:00] meloxicam 15 mg PO DAILY 06/17/19 [History Confirmed 03/20/21 Last Taken 03/20/21 10:00] metformin 1,000 mg PO BID 06/17/19 [History Confirmed 03/20/21 Last Taken 03/20/21 10:00] omeprazole 20 mg PO DAILY 06/17/19 [History Confirmed 03/20/21 Last Taken 03/20/21 10:00] glipizide 10 mg PO DAILY 02/27/21 [History Confirmed 03/20/21 Last Taken 03/20/21 10:00] liraglutide [Victoza 2-Jamal] 1.2 mg SUBCUT HS 02/27/21 [History Confirmed 03/20/21 Last Taken 03/13/21 21:00] trazodone 50 mg PO QPMP PRN 03/20/21 [History Confirmed 03/20/21 Last Taken 03/13/21] cetirizine 10 mg PO DAILY 03/22/21 [History Confirmed 03/22/21 Last Taken Unknown] cyclobenzaprine 5 - 10 mg PO TIDP PRN 03/22/21 [History Confirmed 03/22/21 Last Taken Unknown] hydrocodone-acetaminophen 1 tab PO Q8HP PRN 03/22/21 [History Confirmed 03/22/21 Last Taken Unknown] imipramine HCl 10 mg PO BID 03/22/21 [History Confirmed 03/22/21 Last Taken Unknown] lurasidone [Latuda] 20 mg PO DAILY 03/22/21 [History Confirmed 03/22/21 Last Taken Unknown] oxybutynin chloride 5 mg PO DAILY 03/22/21 [History Confirmed 03/22/21 Last Taken Unknown] pregabalin 200 mg PO TID 03/22/21 [History Confirmed 03/22/21 Last Taken Unknown] COURSE Hospital Course Hospital course: Interval history: History of present illness: Ms. Bauer is a 40 year old F The ED with worsening cough shortness of breath and weakness. Patient presented to the ED on the initially for shortness of breath and weakness body aches and was diagnosed with Covid pneumonia. Patient's oxygenation was okay and patient was discharged from the ED. However patient states that her coughing is worse with productive of white sputum her shortness of breath is worse and she is much more weak. She is requiring higher oxygen supplementation. Patient's blood glucose was 430. She says she has not taken her insulin since she came to the ED last because she has been feeling ill and not eating as much. She has not been checking her blood glucose either. She also vapes throughout the day every day. 03/21 Feeling a little better, although shortness of breath about the same. Dry cough. Low-grade chest discomfort when she coughs but otherwise no new complaints. On 5 L oxygen mask. Instructed her on proning today. 03/22 Patient had increased oxygen needs last night up to 15 L oxygen mask and this morning needed BiPAP. has cough/dyspnea. Patient unable to tolerate prone positioning she did lay on her side yesterday 03/23 Patient with increasing oxygen needs on BiPAP this morning. Trial of Lasix given. She may very well be intubated today. Patient with worsening respiratory status today requiring intubation. Attempting to transfer her to higher level of care currently. Case discussed with [facility] security assessor to Heather excepted patient. A: *Covid PNA w/suspected Bacterial coinfection & ARDS: -RVP neg *Acute hypoxic respite failure: 2/2 above -increased fio2 need o/n. ANASTASIA index previously 6.27, now *Hyponatremia, mild, corrected 133: improved *DM w/neuropathy & Hyperglycemia on admit: 2/2 medication noncompliance, poorly controlled: -A1c 11.1 *Morbid obesity: *Asthma: *Vape user: *GERD: *h/o anxiety/depression: Discharge diagnosis: Covid pneumonia acute hypoxic respite failure Secondary discharge diagnosis: Diabetes morbid obesity vape user asthma history GERD anxiety depression Time Spent with Patient Time attestation: Total time spent providing and/or coordinating discharge services: Time spent: Greater than 30 minutes EXAM Constitutional Vitals: Temp Pulse Resp BP Pulse Ox 98.4 F 97 H 24 H 144/97 98 03/23/21 08:00 03/23/21 13:06 03/23/21 13:07 03/23/21 13:01 03/23/21 13:07 Discharge Data Data Completed and Pending Labs on day of discharge: Labs from last 24 hours 03/23/21 03/23/21 03/23/21 05:25 05:25 05:25 WBC RBC Hgb Hct MCV MCH MCHC RDW Plt Count MPV Neut % (Auto) Lymph % (Auto) [place] % (Auto) Eos % (Auto) Baso % (Auto) Lymph # (Auto) [place] # (Auto) Eos # (Auto) Baso # (Auto) Absolute Neutrophils D-Dimer Sodium 136 Potassium 4.3 Chloride 97 Carbon Dioxide 25 Anion Gap 14.0 BUN 8 Creatinine 0.4 L GFR Calculation 130 Glucose 133 H Uric Acid 3.1 Calcium 8.0 L Phosphorus 2.4 L Magnesium 2.1 Ferritin 247.3 H Total Bilirubin 0.2 Direct Bilirubin < 0.2 GGT 23 AST 29 ALT 21 Alkaline Phosphatase 56 Lactate Dehydrogenase 636 H C-Reactive Protein Total Protein 5.6 L Albumin 3.0 L Globulin 2.6 Albumin/Globulin Ratio 1.2 Triglycerides 133 Procalcitonin 0.28 H 03/23/21 03/23/21 03/23/21 05:25 05:25 05:24 WBC 6.4 RBC 3.82 L Hgb 11.2 L Hct 35.2 L MCV 92.1 MCH 29.3 MCHC 31.8 RDW 15.8 H Plt Count 289 MPV 10.3 Neut % (Auto) 83.6 H Lymph % (Auto) 11.7 L [place] % (Auto) 4.5 Eos % (Auto) 0 Baso % (Auto) 0.2 Lymph # (Auto) 0.75 L [place] # (Auto) 0.29 Eos # (Auto) 0 Baso # (Auto) 0.01 Absolute Neutrophils 5.34 D-Dimer 0.61 H Sodium Potassium Chloride Carbon Dioxide Anion Gap BUN Creatinine GFR Calculation Glucose Uric Acid Calcium Phosphorus Magnesium Ferritin Total Bilirubin Direct Bilirubin GGT AST ALT Alkaline Phosphatase Lactate Dehydrogenase C-Reactive Protein 5.60 H Total Protein Albumin Globulin Albumin/Globulin Ratio Triglycerides Procalcitonin Discharge Plan Patient/Caregiver Discharge Instructions Activity: increase activity as tolerated Diet: Consistent Carbohydrate Prescriptions: No Action meloxicam 15 MG tablet 15 mg PO DAILY RF: 0 omeprazole 20 MG capsule 20 mg PO DAILY RF: 0 Formula Tablet 1 tab PO QDAY RF: 0 insulin glargine 1 UNIT/0.01 ML unit 70 unit SQ HS RF: 0 metformin 500 MG tablet extended release 24 hr 1,000 mg PO BID RF: 0 glipizide 10 mg tablet 10 mg PO DAILY RF: 0 Victoza 2-Jamal 0.6 mg/0.1 mL (18 mg/3 mL) pen injector 1.2 mg SUBCUT HS RF: 0 trazodone 50 mg tablet 50 mg PO QPMP PRN (Reason: Sleep) RF: 0 cyclobenzaprine 10 mg tablet 5 - 10 mg PO TIDP PRN (Reason: spasm) RF: 0 cetirizine 10 mg tablet 10 mg PO DAILY RF: 0 oxybutynin chloride 5 mg tablet 5 mg PO DAILY RF: 0 imipramine HCl 10 mg tablet 10 mg PO BID RF: 0 pregabalin 200 mg capsule 200 mg PO TID RF: 0 Latuda 20 mg tablet 20 mg PO DAILY RF: 0 hydrocodone-acetaminophen 7.5-325 mg tablet 1 tab PO Q8HP PRN (Reason: Pain) RF: 0 Follow Up Plan Follow up with: Elisabeth Moore PA-C [Primary Care Provider] - Patient Disposition: Xfer Acute [facility] Prognosis: Undetermined Overall status at discharge: patient is not back to baseline Discharge Orders: Discharge Order (Routine); Ordered 03/23/21 Ordered By: Lazaro Kulkarni [facility] Deep Vein Thrombosis/Pulmonary Embolism Present on Admission: No
[2021-03-23] MEDS ORDERED: INSULIN GLARGINE, HUMAN 1 UNIT/0.01 ML SQ SCH (21:00)
[2021-03-26 15:26] LABS: M. Pneumoniae IGG 1.83
== END 2021-03-23 14:50 | disposition short-term general hospital (02) | DRG 208 ==
LOC: ED 14:22 → MEDSUR 17:32 → ICU 03-22 07:15
PROVIDERS: ADMIT Internal Medicine; ATTEND Internal Medicine